=== PATIENT | female | born 1935 | race Caucasian/White ===

== ENCOUNTER 2017-03-04 23:00 | Emergency (ER) | payer MEDICARE ==
[2017-03-04 20:48] LABS: BASOPHILS 0.4 %; BASOPHILS ABSOLUTE 0.02 10/3/uL (0.0-0.16); EOSINOPHILS 1.8 %; ER CBC TAT 0 Hrs 05 Mins; IMMATURE GRANULOCYTES 0.2 %; IMMATURE GRANULOCYTES ABSOLUTE 0.01 10/3/uL (0.0-0.11); LYMPHOCYTES 25.6 %; LYMPHOCYTES ABSOLUTE 1.39 10/3/uL (0.67-4.30); MEAN CORPUS HGB CONC 31.9 g/dL (32.0-36.0); MEAN CORPUSCULAR HEMOGLOB 29.9 pg (26.0-34.0); MEAN CORPUSCULAR VOLUME 93.7 fL (80-100); MEAN PLATELET VOLUME 9.7 fL (9.2-13.0); MONOCYTES 5.7 %; MONOCYTES ABSOLUTE 0.31 10/3/uL (0.21-1.20); NEUTROPHILS 66.3 %; PLATELET COUNT 206 10/3/uL (150-400); RBC DISTRIBUTION WIDTH 15.7 % (12.0-16.0); WHITE BLOOD CELLS 5.4 10/3/uL (4.5-10.5)
[2017-03-04 20:49] LABS: HEMATOCRIT 41.4 % (36.0-48.0); HEMOGLOBIN 13.2 g/dL (12.0-16.0); MANUAL DIFF NO %; RED CELL COUNT 4.42 10/6/uL (4.0-5.6)
[2017-03-04 21:11] LABS: A/G RATIO 0.9 (0.7-1.9); ALKALINE PHOSPHATASE 73 U/L (45-117); BUN (BLOOD UREA NITROGEN) 14 MG/DL (6-23); CHLORIDE, SERUM 102 MMOL/L (96-112); CREATININE 0.81 MG/DL (0.55-1.02); GFR AFRICAN AMERICAN 80 ML/MIN (>=60); GFR NON AFRICAN AMERICAN 69 ML/MIN (>=60); GLOBULIN 3.9 G/DL (2.5-4.1); GLUCOSE, SERUM 84 MG/DL (60-99); POTASSIUM, SERUM 3.8 MMOL/L (3.5-5.3); SGOT(AST) 20 U/L (5-40); SGPT(ALT) 18 U/L (5-65); SODIUM, SERUM 140 MMOL/L (135-148); TOTAL BILIRUBIN 0.3 MG/DL (0-1.2); TOTAL PROTEIN 7.5 G/DL (6.0-8.5)
[2017-03-04 21:13] LABS: ALBUMIN 3.6 G/DL (3.5-5.0); CALCIUM, SERUM 9.5 MG/DL (8.5-10.4); CO2 (CARBON DIOXIDE) 34 MMOL/L (24-34)
[~2017-03-04 23:00] MED LIST: ALBUTEROL0.083 % INH; ALBUTEROL0.63 MG/3 INH; ASA5GR PO; ASABAYER PO; ASAEC PO; ATV.5 PO; BLOOD THINNER PO; BP MED PO; CELEXA20 PO; CHERATUSSIN PO; COMBIVENT INH; DORYX100 MG PO; DULERA 200 MCG/13 GM INH; DUONEB INH; HEART MED PO; HUMIBID1200 MG PO; HYDROCODONE PO; LEVAQUIN5T PO; LEVAQUIN750 MG PO; LIPITOR40 PO; LIPITOR80 MG PO; LORT7 PO; LORTAB10 PO; NEUR300 PO; P10; P10 PO; P20 PO; PLAVIX PO; PRILO PO; PRILOSEC; PROAIR HFA INH; PROVENTSOL INH; SPIRIVA INH; STERAPRED5 MG; SYMBICORT 160/41 INH INH; TOPXL25 PO; V2 PO; VALIUM; VENTOLIN HFA INH
[2017-03-04 23:41] LABS: TROPONIN I <0.02 NG/ML (<0.05)
== END 2017-03-05 03:12 | disposition home or self-care (01) ==
LOC: ER 23:00
PROVIDERS: Emergency Medicine
DX: J44.9 Chronic obstructive pulmonary disease, unspecified (principal); R91.8 Other nonspecific abnormal finding of lung field; I25.2 Old myocardial infarction; I10 Essential (primary) hypertension; F41.9 Anxiety disorder, unspecified; Z95.5 Presence of coronary angioplasty implant and graft; Z85.118 Personal history of other malignant neoplasm of bronchus and lung; F17.200 Nicotine dependence, unspecified, uncomplicated; Z88.5 Allergy status to narcotic agent; Z88.0 Allergy status to penicillin; Z79.82 Long term (current) use of aspirin; Z79.52 Long term (current) use of systemic steroids; Z79.899 Other long term (current) drug therapy
CPT/HCPCS: 71020; 71275; 80053; 83880; 84484; 85025; 87040; 93005; 99285; Q9967